=== PATIENT | male | born 1980 | race Caucasian/White ===

== ENCOUNTER 2017-02-26 17:45 | Inpatient (IN) | payer SELFPAY ==
[~2017-02-26] VITALS: Ht 175.3 cm; Wt 58.4 kg
[2017-02-26 17:56] VITALS: BP 144/89; PULSE 53; RESP 16; TEMP 97.9; O2SAT 97
[2017-02-26 18:26] VITALS: BP 139/84; PULSE 55; PULSE 60; RESP 15; TEMP 98.2; O2SAT 100; O2SAT 98
[2017-02-26] MEDS ORDERED: METH40TA PO (18:37)
[2017-02-26] MEDS ORDERED: TETANUS/DIPHTHERIA TOXOID ADULT 0.5 ML VIAL IM ONE (19:00)
[2017-02-26] MEDS ORDERED: LIDOCAINE HCL 1% PF 30 ML VIAL INFIL ONE (19:00)
[2017-02-26] MEDS ORDERED: BUPIVACAINE HCL PF 0.5% 10 ML VIAL INFIL ONE (19:00)
--- NOTE | 2017-02-26 19:12 | PD ---
HPI Chief Complaint: Laceration/Skin Injury Time Seen by Provider: 19:00 Travel History International Travel<30 days: No Contact w/Intl Traveler<30days: No Traveled to known affect area: No History of Present Illness HPI 36-year-old [id number] male presents for evaluation of laceration to the right third finger. It was Sustained prior to arrival on a table saw. He has generalized pain associated with laceration. Limited range of motion. Denies any numbness or tingling. Last tetanus vaccination unknown. No other complaints. [facility] Past Medical History Medical History: Denies Significant Hx Diminished Hearing: No Tetanus Vaccination: Unknown Influenza Vaccination: No Social History Alcohol Use: Yes (rare) Tobacco Use: Yes Substance Use: No Allergies-Medications (Allergen,Severity, Reaction): Coded Allergies: Buprenorphine (Verified Allergy, Severe, 02/26/17) lost hearing, hot/cold/seizures Toradol (Verified Allergy, Unknown, 02/26/17) Reported Meds & Prescriptions Reported Meds & Active Scripts Active Reported Methadone (Methadone HCl) 40 Mg Tab 40 Mg PO DAILY Review of Systems Except as stated in HPI: all other systems reviewed are Neg Physical Exam Narrative GENERAL: Well-developed well-nourished male in no acute distress SKIN: Warm and dry. Examination of the right third finger reveals a 8cm deep flap laceration to the dorsal aspect of the distal right third finger which seems to have obliterated the extensor tendon, obvious bony involvement. HEAD: Atraumatic. Normocephalic. EYES: Pupils equal and round. No scleral icterus. No injection or drainage. ENT: No nasal bleeding or discharge. Mucous membranes pink and moist. NECK: Trachea midline. No JVD. CARDIOVASCULAR: Regular rate and rhythm. No murmur appreciated. RESPIRATORY: No accessory muscle use. Clear to auscultation. Breath sounds equal bilaterally. GASTROINTESTINAL: Abdomen soft, non-tender, nondistended. Hepatic and splenic margins not palpable. MUSCULOSKELETAL: Skin as noted above. The right third finger DIP joint is passively held in flexion secondary to extensor tendon injury. Unable to actively fully extend. Capillary refill less than 2 seconds. Distal sensation seems to be preserved on the radial and ulnar aspect of the right third finger. NEUROLOGICAL: Awake and alert. No obvious cranial nerve deficits. Motor grossly within normal limits. Normal speech. Data Data Last Documented VS Vital Signs Date Time Temp Pulse Resp B/P Pulse Ox O2 Delivery O2 Flow Rate FiO2 02/26/17 19:40 68 15 124/68 98 Room Air 02/26/17 18:26 98.2 Orders Bupivacaine Pf 0.5% Inj (Marcaine Pf 0.5 (02/26/17 19:00) Lidocaine Pf 1% Inj (Xylocaine-Mpf 1% In (02/26/17 19:00) Finger ([id number]) (02/26/17 18:55) Tetanus/Diphtheria Tox Adult (Tetanus/Di (02/26/17 19:00) Cefazolin 2 Gm Premix (Ancef 2 Gm Premix (02/26/17 19:15) Complete Blood Count With Diff (02/26/17 19:51) Basic Metabolic Panel (Bmp) (02/26/17 19:51) Act Partial Throm Time (Ptt) (02/26/17 19:51) Prothrombin Time / Inr (Pt) (02/26/17 19:51) NPO (02/26/17 19:51) Admit Order (Ed Use Only) (02/26/17 20:58) Consult Hand Surgery (02/26/17 ) Cefazolin Inj (Ancef Inj) (02/27/17 00:00) Gentamicin Inj (Gentamicin Inj) (02/26/17 21:15) Gentamicin Consult Pharmacy (Gentamicin (02/26/17 21:15) Consent (02/26/17 21:07) ^ Elevate (02/26/17 21:07) Dext 5%-Nacl 0.45% 1000 Ml Inj (D5w-1/2 (02/27/17 01:00) Hydromorphone Pf Inj (Dilaudid Pf Inj) (02/26/17 21:15) Potassium Chloride (Kcl) (02/26/17 21:15) Admit To Inpatient (02/26/17 ) Vital Signs (Adult) Q4H (02/26/17 21:14) Activity Oob Ad Libertad (02/26/17 21:14) Diet Npo (02/27/17 Breakfast) Sodium Chlor 0.9% 1000 Ml Inj (Ns 1000 M (02/26/17 21:14) Sodium Chloride 0.9% Flush (Ns Flush) (02/26/17 21:15) Sodium Chloride 0.9% Flush (Ns Flush) (02/27/17 09:00) Ondansetron Inj (Zofran Inj) (02/26/17 21:15) Bisacodyl Supp (Dulcolax Supp) (02/26/17 21:15) Comprehensive Metabolic Panel (02/27/17 06:00) Complete Blood Count With Diff (02/27/17 06:00) Scd Bilateral/Knee High QUYNH.BID (02/26/17 21:14) Syed Bilateral/Knee High QUYNH.QSHIFT (02/26/17 21:14) Acetaminophen (Tylenol) (02/26/17 21:15) Morphine Inj (Morphine Inj) (02/26/17 21:15) Oxycodone (Roxicodone) (02/26/17 21:15) Inpatient Certification (02/26/17 ) Methadone (Dolophine) (02/27/17 09:00) (Hub Use Only)Inp Phy Cons/Ref (02/26/17 ) Splint Or Brace Apply/Monitor (02/26/17 21:26) Labs Laboratory Tests Test 02/26/17 19:50 White Blood Count 12.5 TH/MM3 Red Blood Count 4.21 MIL/MM3 Hemoglobin 13.2 GM/DL Hematocrit 38.2 % Mean Corpuscular Volume 90.8 FL Mean Corpuscular Hemoglobin 31.3 PG Mean Corpuscular Hemoglobin 34.4 % Concent Red Cell Distribution Width 13.8 % Platelet Count 275 TH/MM3 Mean Platelet Volume 8.4 FL Neutrophils (%) (Auto) 70.1 % Lymphocytes (%) (Auto) 21.8 % Monocytes (%) (Auto) 7.0 % Eosinophils (%) (Auto) 0.8 % Basophils (%) (Auto) 0.3 % Neutrophils # (Auto) 8.8 TH/MM3 Lymphocytes # (Auto) 2.7 TH/MM3 Monocytes # (Auto) 0.9 TH/MM3 Eosinophils # (Auto) 0.1 TH/MM3 Basophils # (Auto) 0.0 TH/MM3 CBC Comment DIFF FINAL Differential Comment Prothrombin Time 10.7 SEC Prothromb Time International 1.0 RATIO Ratio Activated Partial 26.6 SEC Thromboplast Time Sodium Level 139 MEQ/L Potassium Level 3.2 MEQ/L Chloride Level 100 MEQ/L Carbon Dioxide Level 28.5 MEQ/L Anion Gap 11 MEQ/L Blood Urea Nitrogen 8 MG/DL Creatinine 0.94 MG/DL Estimat Glomerular Filtration 92 ML/MIN Rate Random Glucose 78 MG/DL Calcium Level 9.1 MG/DL MDM Medical Decision Making Medical Screen Exam Complete: Yes Emergency Medical Condition: Yes Medical Record Reviewed: Yes Differential Diagnosis Open fracture, extensor tendon laceration, cutaneous laceration Narrative Course 36 old male with 8 cm complicated laceration of the dorsal aspect of right third finger, obvious open fracture with extensor tendon injury. A digital block was performed. The wound will be thoroughly irrigated. IV Ancef has been administered. X-ray has been ordered. Tetanus status updated. X-ray confirms a middle phalanx open fracture with extensor tendon involvement. The wound has been thoroughly irrigated. The on-call hand surgeon will be consult. Discussed with Dr. Milligan hand surgeon who come and evaluate the patient. npo. Basic lab work has been ordered. Dr. Castillo plans on taking this patient to the operating room in the morning once the OR has availability. He has asked that the wound be loosely sutured and that the finger be placed in a splint with extension. The patient verbally consents. The patient was admitted to the medicine team with hand surgery consultation. NPO after midnight. Procedures Procedure Narrative LACERATION LOCATION: Right third finger LENGTH: 8 cm NUMBER OF STITCHES/NEIL: 11 REPAIR: The area of the laceration was prepped with Betadine and sterilely draped. The laceration was infiltrated with 1% lidocaine, 0.5% Marcaine digital block. The wound was copiously irrigated and explored. The wound was closed using 5-0 prolene simple interrupted. This was a single layer repair. A sterile dressing was applied. The patient was advised to keep the dressing clean and dry. Patient tolerated the procedure well. Diagnosis Primary Impression: Open finger fracture Qualified Code: S62.622B - Open displaced fracture of middle phalanx of right middle finger, initial encounter Additional Impression: Extensor tendon laceration, finger, open wound Qualified Code: S66.529A - Extensor tendon laceration, finger, open wound, initial encounter Admitting Information Admitting Physician Requests: Observation Long Saldivar February 26, 2017 19:12
[2017-02-26] MEDS ORDERED: ceFAZolin 2 GM PREMIX 50 ML IV ONE (19:15)
--- NOTE | 2017-02-26 19:32 | RADRPT ---
EXAM DATE/TIME: 02/26/2017 19:12 [place] COMPARISON: No previous studies available for comparison. INDICATIONS : Laceration 3rd distal digit, finger vs. power saw MEDICAL HISTORY : None. SURGICAL HISTORY : None. ENCOUNTER: Initial ACUITY: 1 day PAIN SCORE: 9/10 LOCATION: Right 3rd digit FINDINGS: Large soft tissue defect seen dorsally of the midportion of the long finger. There is a large bony de fect of the middle phalanx and an associated oblique fracture with palmar angulation of the proximal shaft region. Articular surfaces are intact. No subluxations. Mild flexion deformity seen at the distal interphalangeal joint. The mid to distal extensor tendon is probably severed. CONCLUSION: Fractured middle phalanx of the long finger as above. Large saw defect of the dorsal soft tissues and the middle phalanx. Probably severed extensor tendon. Wallace Figueroa MD on February 26, 2017 at 19:28 Board Certified Radiologist. This report was verified electronically.
[2017-02-26 19:40] VITALS: BP 124/68; PULSE 68; RESP 15; O2SAT 98
[2017-02-26 20:16] LABS: AUTOMATED NEUTROPHIL # 8.8 TH/MM3 (1.8-7.7); BASOPHIL % 0.3 % (0.0-2.0); EOSINOPHIL # 0.1 TH/MM3 (0-0.4); EOSINOPHIL % 0.8 % (0.0-4.0); HEMATOCRIT 38.2 % (39.0-51.0); HEMO FLAGS DIFF FINAL; LYMPH % 21.8 % (9.0-44.0); LYMPHOCYTE # 2.7 TH/MM3 (1.0-4.8); MEAN CELL VOLUME 90.8 FL (80.0-100.0); MEAN CORPUSCULAR HEMOGLOBIN 31.3 PG (27.0-34.0); MEAN CORPUSCULAR HGB CONC 34.4 % (32.0-36.0); NEUT % 70.1 % (16.0-70.0); PLATELET COUNT 275 TH/MM3 (150-450); RED BLOOD COUNT 4.21 MIL/MM3 (4.50-5.90); RED CELL DISTRIBUTION WIDTH 13.8 % (11.6-17.2); WHITE BLOOD COUNT 12.5 TH/MM3 (4.0-11.0)
[2017-02-26 20:50] LABS: APTT (PATIENT) 26.6 SEC (24.3-30.1); PROTHROMBIN TIME - PATIENT 10.7 SEC (9.8-11.6)
[2017-02-26 20:51] LABS: BICARBONATE 28.5 MEQ/L (21.0-32.0); POTASSIUM 3.2 MEQ/L (3.5-5.1)
[2017-02-26] MEDS ORDERED: BISACODYL 10 MG SUPP RECTAL PRN (21:15)
[2017-02-26] MEDS ORDERED: ONDANSETRON HCL 4 MG/2 ML VIAL IVP PRN (21:15)
[2017-02-26] MEDS ORDERED: SODIUM CHLORIDE 0.9% FLUSH 10 ML FLUSH IV FLUSH PRN (21:15)
[2017-02-26] MEDS ORDERED: Gentamicin Consult Pharmacy 1 EA OTHER SCH (21:15)
[2017-02-26] MEDS ORDERED: POTASSIUM CHLORIDE 20 MEQ CONTROLLED RELEASE TAB PO ONE (21:15)
[2017-02-26] MEDS ORDERED: HYDROmorphone HCL PF 1 MG/ML VIAL IV PUSH PRN (21:15)
[2017-02-26] MEDS ORDERED: ACETAMINOPHEN 325 MG TAB PO PRN (21:15)
--- NOTE | 2017-02-26 21:18 | HHI.HP ---
[facility] Service [place] Primary Care Physician No Primary Care Physician Admission Diagnosis Open finger fraqcture with extensor tendon involvement Diagnoses: (1) Open finger fracture Diagnosis: Principal (2) Extensor tendon laceration, finger, open wound Diagnosis: Principal (3) Leukocytosis Diagnosis: Principal (4) Hypokalemia Diagnosis: Principal (5) Chronic pain Diagnosis: Principal (6) Opioid dependence Diagnosis: Principal (7) Tobacco abuse Diagnosis: Principal Travel History International Travel<30 Days: No Contact w/Intl Traveler <30 Da: No Traveled to Known Affected Are: No History of Present Illness This is a 36-year-old male with a PMH of Chronic Pain and Opioid Dependence who presented to the ER w/ right finger laceration while using table saw. No other injuries reported. On arrival, BP 144/89, HR 53, O2 sat 97% on RA, Afebrile. WBC 12.5. Chemistry essentially unremarkable except for K+ 3.2. INR 1.0. Finger X-ray w/ fracture middle phalanx of the long finger, large side defects on dorsal soft tissues and middle phalanx, probably severed extensor tendon. Dr. Milligan consulted by ER physician, plan is for surgical intervention. Review of Systems Except as stated in HPI: all other systems reviewed are Neg ROS: 14 point review of systems otherwise negative. Past Family Social History Past Medical History PMH: Chronic Pain and Opioid Dependence Past Surgical History PAST SURGICAL HISTORY: None Allergies: Coded Allergies: Buprenorphine (Verified Allergy, Severe, 02/26/17) lost hearing, hot/cold/seizures Toradol (Verified Allergy, Unknown, 02/26/17) Family History PAST FAMILY HISTORY: Reviewed. No h/o DM or CAD Social History PAST SOCIAL HISTORY: Occasional alcohol. Positive for tobacco abuse. Negative for drugs. Physical Exam Vital Signs Vital Signs Date Time Temp Pulse Resp B/P Pulse Ox O2 Delivery O2 Flow Rate FiO2 02/26/17 19:40 68 15 124/68 98 Room Air 02/26/17 18:26 60 15 139/84 98 Room Air 02/26/17 18:26 60 18 02/26/17 18:26 98.2 55 15 139/84 100 02/26/17 17:56 97.9 53 16 144/89 97 Physical Exam PE: GENERAL: Pleasant middle-aged male in no acute distress. HEENT: PERRLA, EOMI. No scleral icterus or conjunctival pallor. No lid lag or facial droop. CARDIOVASCULAR: Regular rate and rhythm. No obvious murmurs to auscultation. No chest tenderness to palpation. RESPIRATORY: No obvious rhonchi or wheezing. Clear to auscultation. Breath sounds equal bilaterally. GASTROINTESTINAL: Abdomen soft, non-tender, nondistended. BS normal. MUSCULOSKELETAL: Extremities without clubbing, cyanosis, or edema. No obvious deformities. Right 3rd finger injury, s/p laceration repair. NEUROLOGICAL: Awake, alert and oriented x4. No focal neurologic deficits. Moving both upper and lower extremities spontaneously. Laboratory Laboratory Tests Test 02/26/17 19:50 White Blood Count 12.5 Red Blood Count 4.21 Hemoglobin 13.2 Hematocrit 38.2 Mean Corpuscular Volume 90.8 Mean Corpuscular Hemoglobin 31.3 Mean Corpuscular Hemoglobin 34.4 Concent Red Cell Distribution Width 13.8 Platelet Count 275 Mean Platelet Volume 8.4 Neutrophils (%) (Auto) 70.1 Lymphocytes (%) (Auto) 21.8 Monocytes (%) (Auto) 7.0 Eosinophils (%) (Auto) 0.8 Basophils (%) (Auto) 0.3 Neutrophils # (Auto) 8.8 Lymphocytes # (Auto) 2.7 Monocytes # (Auto) 0.9 Eosinophils # (Auto) 0.1 Basophils # (Auto) 0.0 CBC Comment DIFF FINAL Differential Comment Prothrombin Time 10.7 Prothromb Time International 1.0 Ratio Activated Partial 26.6 Thromboplast Time Sodium Level 139 Potassium Level 3.2 Chloride Level 100 Carbon Dioxide Level 28.5 Anion Gap 11 Blood Urea Nitrogen 8 Creatinine 0.94 Estimat Glomerular Filtration 92 Rate Random Glucose 78 Calcium Level 9.1 Result Diagram: 02/26/17 1950 02/26/171949 Assessment and Plan Problem List: (1) Open finger fracture ICD Code: S62.609B Status: Acute (2) Extensor tendon laceration, finger, open wound ICD Code: S66.529A Status: Acute (3) Leukocytosis ICD Code: D72.829 Status: Acute (4) Chronic pain ICD Code: G89.29 Status: Acute (5) Opioid dependence ICD Code: F11.20 Status: Acute (6) Hypokalemia ICD Code: E87.6 Status: Acute (7) Tobacco abuse ICD Code: Z72.0 Status: Acute Assessment and Plan A/P: 1. Open Finger Fx: s/p injury w/ table saw, Right 3rd finger open fracture w/ likely extensor tendon laceration. X-ray w/ fracture middle phalanx of the long finger, large solid defect of the dorsal soft tissues and middle phalanx, probably severed extensor tendon, by me. Dr. Milligan consulted by ER physician, plan is for surgical intervention. NPO, IVF, analgesics/antiemetics as needed. 2. Chronic Pain: w/ Opioid Dependence, currently on Methadone 40mg qd, will resume home medications. 3. Leukocytosis: WBC 12.5, likely stress response secondary to fracture, will repeat labs in am. No signs of infection at this time. 4. Hypokalemia: K+ 3.2, will replace and recheck. 5. Tobacco Abuse: Pt counselled. NicoDerm prn if needed. 6. DVT Prophylaxis: SCD/Teds. 7. Social work for d/c planning as needed. 8. Case discussed w/ ER physician at length. Physician Certification 2 Midnight Certification Type: Admission for Inpatient Services Order for Inpatient Services The services are ordered in accordance with Medicare regulations or non- Medicare payer requirements, as applicable. In the case of services not specified as inpatient-only, they are appropriately provided as inpatient services in accordance with the 2-midnight benchmark. Estimated LOS (days): 2 days is the estimated time the patient will need to remain in the hospital, assuming treatment plan goals are met and no additional complications. Post-Hospital Plan: Not yet determined Problem Qualifiers (1) Open finger fracture: Qualified Code: S62.622B - Open displaced fracture of middle phalanx of right middle finger, initial encounter (2) Extensor tendon laceration, finger, open wound: Qualified Code: S66.529A - Extensor tendon laceration, finger, open wound, initial encounter Camilla Higginbotham MD February 26, 2017 21:18
[2017-02-26] MEDS ORDERED: GENTAMICIN INJ 120 MG in SODIUM CHLORIDE 0.9% INJ 100 ML IV ONE (22:00)
[2017-02-26 22:30] VITALS: BP 125/72; PULSE 82; RESP 16; TEMP 98.1; O2SAT 99
[2017-02-26] MEDS ORDERED: LACTATED RINGER'S 1000 ML IV PRN (22:45)
[2017-02-26] MEDS ORDERED: INSULIN HUMAN REGULAR 1,000 UNITS/10 ML VIAL SQ PRN (22:45)
[2017-02-26] MEDS ORDERED: CHLORHEXIDINE GLUCONATE 2 % 1 PACK (2 CLOTHS) TOPICAL PRN (22:45)
[2017-02-26] MEDS ORDERED: POVIDONE IODINE 5% (ANTISEPSIS KIT) 4 APPLICATIONS EACH NARE PRN (22:45)
[2017-02-26] MEDS ORDERED: SODIUM CHLORID 0.9% 500 ML IV PRN (22:45)
[2017-02-26] MEDS ORDERED: METOPROLOL TARTRATE 25 MG TAB PO PRN (22:45)
--- NOTE | 2017-02-26 23:02 | MB ---
cc: NITESH AMEZCUA MD DATE OF CONSULTATION 02/26/17 HISTORY OF PRESENT ILLNESS The patient is a 36-year-old iiqjo-ycay-dfhqserb white male who several hours ago was using a table saw and went across his right third finger predominantly dorsally. he was woodworking at home when this happened. PAST MEDICAL HISTORY Chronic pain. PAST SURGICAL HISTORY Denied. MEDICATIONS Methadone 45 mg daily. ALLERGIES SUBOXONE TORADOL TRAMADOL SOCIAL HISTORY She does smoke cigarettes occasionally. FAMILY HISTORY Noncontributory and not pertinent to this injury. REVIEW OF SYSTEMS Does not complain of any headaches or blurry or double vision. Does not complain of any coughing, wheezing or shortness of breath. Not complaining of any nausea, vomiting, abdominal pain. Not complaining of any burning, frequency or urgency with urination. Not complaining of any spine, neck or back pain. He is not complaining of any anxiety, depression or suicidal ideations. He is not complaining of any night sweats, fevers or chills. He is not complaining of any lesions, rashes or eruptions on his skin. IMAGING STUDIES X-ray examination of the right middle fingers performed reviewed in the emergency room today which reveals fracture middle phalanx of the long finger, a large saw defect of the dorsal soft tissues and the middle phalanx, probably severed extensor tendons. PHYSICAL EXAMINATION GENERAL: He is well-developed, well-nourished in no apparent distress. VITAL SIGNS: Temperature is 98.2, heart rate 68, respiratory rate 15, blood pressure 124/68, pulse ox 98% on room air. Examination of the right upper extremity - he had his tests on his forearm. It is not infected. His upper extremity from the elbow down major joints move normally. There is the obvious injury to the middle finger which has a large he maceration dorsally that extends radially from the level of the PIP joint distally. There is exposed extensor tendon and a large dorsal flap of skin with extensor tendon attached to it. Capillary refill on the tip of the finger is two seconds and the nail bed likewise. The patient has a digital block in place and I am not able to assess sensation. Flexor tendons appear to be intact. There is no active bleeding. There are no other obvious injuries. IMPRESSION Table saw injury right middle finger with open middle phalangeal fracture and extensor tendon injury. PLAN Go to the operating room, however, the operating room does not have capacity to accommodate us tonight. They are booked until early childhood education worker. Therefore, the patient has been washed out once in emergency room and he is going to washed out again more thoroughly by the physician's mortgage assistant and the skin edges loosely reapproximated and he will be splinted. He will be admitted, placed on IV antibiotics and we will go to the operating room in the morning. I discussed this with the patient. He understands the risk of infection and the risk of possibly losing the finger and he understands and requests that we proceed. He also understands the risks include but are not limited to heart attack, stroke, , bleeding, risk of injury, blood vessels, tendons, nerves and bones and requests that we proceed. MD KATHY Yang III/ /9:20 PM /10:47 PM
[2017-02-27] MEDS: MORPHINE SULFATE 4 MG/ML INJ IV PRN ×5 (00:14→21:04)
[2017-02-27] MEDS ORDERED: DEXT 5%-NACL 0.45% 1000 ML INJ 1,000 ML IV SCH (01:00)
[2017-02-27 04:00] VITALS: BP 116/79; PULSE 54; RESP 17; TEMP 98; O2SAT 98
[2017-02-27 05:27] LABS: AUTOMATED NEUTROPHIL # 8.4 TH/MM3 (1.8-7.7); BASOPHIL % 0.3 % (0.0-2.0); EOSINOPHIL # 0.3 TH/MM3 (0-0.4); EOSINOPHIL % 1.9 % (0.0-4.0); HEMATOCRIT 38.2 % (39.0-51.0); HEMO FLAGS DIFF FINAL; LYMPH % 28.6 % (9.0-44.0); LYMPHOCYTE # 3.9 TH/MM3 (1.0-4.8); MEAN CELL VOLUME 91.1 FL (80.0-100.0); MEAN CORPUSCULAR HEMOGLOBIN 31.2 PG (27.0-34.0); MEAN CORPUSCULAR HGB CONC 34.2 % (32.0-36.0); MONO % 7.7 % (0.0-8.0); NEUT % 61.5 % (16.0-70.0); PLATELET COUNT 251 TH/MM3 (150-450); RED BLOOD COUNT 4.19 MIL/MM3 (4.50-5.90); RED CELL DISTRIBUTION WIDTH 13.5 % (11.6-17.2); WHITE BLOOD COUNT 13.6 TH/MM3 (4.0-11.0)
[2017-02-27 05:45] LABS: ANION GAP 11 MEQ/L (5-15); AST (GOT) 16 U/L (15-37); BICARBONATE 27.9 MEQ/L (21.0-32.0); BLOOD UREA NITROGEN 11 MG/DL (7-18); CHLORIDE 102 MEQ/L (98-107); GLOMERULAR FILTRATION RATE 90 ML/MIN (>89); POTASSIUM 3.4 MEQ/L (3.5-5.1); SODIUM (NA) 141 MEQ/L (136-145)
[2017-02-27 05:48] LABS: ALKALINE PHOSPHATASE 78 U/L (45-117); ALT (GPT) 29 U/L (12-78); TOTAL BILIRUBIN ADULT 0.2 MG/DL (0.2-1.0)
[2017-02-27] MEDS ORDERED: GENTAMICIN INJ 120 MG in SODIUM CHLORIDE 0.9% INJ 100 ML IV ONE (06:00)
[2017-02-27] MEDS: SODIUM CHLOR 0.9% 1000 ML INJ 1,000 ML IV SCH ×2 (07:14→17:14)
[2017-02-27] MEDS: SODIUM CHLORIDE 0.9% FLUSH 10 ML FLUSH IV FLUSH SCH ×2 (07:49→21:05)
[2017-02-27] MEDS: METHADONE HCL 10 MG TAB PO SCH (08:49)
--- NOTE | 2017-02-27 10:00 | HHI.PR ---
Subjective Remarks Follow-up open finger fracture, chronic pain, leukocytosis, hypokalemia. Patient going for surgery this morning. Pain is adequately controlled at this time. Denies chest pain, dyspnea, nausea, vomiting. Objective Vitals Vital Signs Date Time Temp Pulse Resp B/P Pulse Ox O2 Delivery O2 Flow Rate FiO2 02/27/17 04:00 98.0 54 17 116/79 98 02/26/17 22:30 98.1 82 16 125/72 99 02/26/17 19:40 68 15 124/68 98 Room Air 02/26/17 18:26 60 15 139/84 98 Room Air 02/26/17 18:26 60 18 02/26/17 18:26 98.2 55 15 139/84 100 02/26/17 17:56 97.9 53 16 144/89 97 I/O 02/26/17 02/26/17 02/26/17 02/27/17 02/27/17 02/27/17 07:00 15:00 23:00 07:00 15:00 23:00 Intake Total 0 ml Balance 0 ml Intake Oral 0 ml # Voids 2 # Bowel Movements 0 Result Diagram: 02/27/17 0333 02/27/17 0333 Imaging Last Impressions Finger X-Ray 02/26/17 7615 Signed Impressions: Service Date/Time: Sunday, February 26, 2017 19:12 - CONCLUSION: Fractured middle phalanx of the long finger as above. Large saw defect of the dorsal soft tissues and the middle phalanx. Probably severed extensor tendon. Wallace Figueroa MD Objective Remarks General: No acute distress. Heart: Regular rate and rhythm. No murmur. Lungs: Clear to auscultation bilaterally. No wheezes, rales, or rhonchi. Breathing is nonlabored. Abdomen: Soft, nontender, nondistended. Extremities: No lower extremity edema. Right hand bandaged. Psych: Alert and oriented. Urinary Catheter: No Vascular Central Line Catheter: No A/P Problem List: (1) Open finger fracture ICD Code: S62.609B Status: Acute (2) Extensor tendon laceration, finger, open wound ICD Code: S66.529A Status: Acute (3) Leukocytosis ICD Code: D72.829 Status: Acute (4) Chronic pain ICD Code: G89.29 Status: Chronic (5) Opioid dependence ICD Code: F11.20 Status: Chronic (6) Hypokalemia ICD Code: E87.6 Status: Acute (7) Tobacco abuse ICD Code: Z72.0 Status: Chronic Assessment and Plan 1. Open finger fracture: Patient cut his right third finger with a table saw. There is an open fracture with likely extensor tendon laceration. Going for surgery with Dr. Milligan this morning. Keep nothing by mouth. Continue pain control. 2. Chronic pain, opioid dependence: Patient is on methadone reportedly 45 mg every other day. He goes to the [facility] methadone clinic. Will try to confirm dosing. 3. Leukocytosis: Likely stress reaction. Monitor labs. 4. Hypokalemia: Supplement potassium. Monitor labs. 5. Tobacco abuse: Counseled quit smoking. 6. DVT prophylaxis: THALIA Ram. Avoid chemical prophylaxis in anticipation of surgery. Problem Qualifiers (1) Open finger fracture: Qualified Code: S62.622B - Open displaced fracture of middle phalanx of right middle finger, initial encounter (2) Extensor tendon laceration, finger, open wound: Qualified Code: S66.529A - Extensor tendon laceration, finger, open wound, initial encounter Abelardo Maloen MD February 27, 2017 10:00
[2017-02-27] MEDS ORDERED: LIDOCAINE HCL 2% 50 ML VIAL ONE (10:30)
[2017-02-27] MEDS ORDERED: BUPIVACAINE HCL PF 0.5% 30 ML VIAL ONE (10:30)
--- NOTE | 2017-02-27 11:31 | HHI.PR ---
Immediate Post Op Note Procedure Date: February 27, 2017 Pre Op Diagnosis: (1) Extensor tendon laceration, finger, open wound (2) Open finger fracture Post Op Diagnosis: Surgeon: Martín Milligan III Solution Professional(s): Procedure: debridement of open fracture right 3rd middle phalanx open reduction and pinning right 3rd middle phalanx repair right 3rd extensor mechanism complex wound closure right middle finger use of image intensifier Complications: none Specimen(s) removed: none Estimated blood loss: 1cc Anesthesia: General, Local Drains: None IVF Patient to: PACU Patient Condition: Good Martín Milligan III, MD February 27, 2017 11:31
[2017-02-27] MEDS ORDERED: NEOMYCIN/POLYMYXIN 1 ML G.U. IRRIGANT TOPICAL ONE (11:40)
[2017-02-27] MEDS ORDERED: CEPH-460 PO (12:46)
[2017-02-27] MEDS ORDERED: IBUP800T23 PO (12:46)
[2017-02-27] MEDS ORDERED: NORC5TAB PO (12:46)
[2017-02-27] MEDS ORDERED: fentaNYL CITRATE 250 MCG/5 ML AMP ONE (12:59)
[2017-02-27] MEDS ORDERED: DO NOT ADM ANY ANTICOAGULANT DRUGS PRN (13:30)
[2017-02-27] MEDS ORDERED: NEOSTIGMINE 3 MG/3 ML SYR IV ONE (13:47)
[2017-02-27] MEDS ORDERED: PROPOFOL 200 MG/20 ML AMP IV ONE (13:47)
[2017-02-27] MEDS ORDERED: LACTATED RINGER'S 1000 ML INJ 1,000 ML IV ONE (13:47)
[2017-02-27] MEDS: GENTAMICIN INJ 110 MG in SODIUM CHLORIDE 0.9% INJ 100 ML IV SCH ×2 (14:54→21:47)
[2017-02-27 18:11] VITALS: BP 100/70; PULSE 77; RESP 18; TEMP 98.3; O2SAT 99
[2017-02-27 20:00] VITALS: BP 107/56; PULSE 70; RESP 17; TEMP 98.9; O2SAT 96
[2017-02-27] MEDS ORDERED: PHARMACY ORDERED LAB ONE ×2 (21:45→23:00)
[2017-02-28] VITALS: BP 104/60; PULSE 53; RESP 16; TEMP 96.1; O2SAT 97
[2017-02-28] MEDS: MORPHINE SULFATE 4 MG/ML INJ IV PRN ×3 (02:27→15:13)
[2017-02-28] MEDS: SODIUM CHLOR 0.9% 1000 ML INJ 1,000 ML IV SCH ×2 (03:14→13:44)
[2017-02-28 04:00] VITALS: BP 97/54; PULSE 57; RESP 17; TEMP 97.6; O2SAT 96
[2017-02-28 05:52] LABS: AUTOMATED NEUTROPHIL # 15.5 TH/MM3 (1.8-7.7); BASOPHIL % 0.2 % (0.0-2.0); EOSINOPHIL % 0.1 % (0.0-4.0); HEMATOCRIT 36.8 % (39.0-51.0); HEMO FLAGS DIFF FINAL; LYMPH % 10.7 % (9.0-44.0); MEAN CELL VOLUME 91.3 FL (80.0-100.0); PLATELET COUNT 234 TH/MM3 (150-450); RED BLOOD COUNT 4.02 MIL/MM3 (4.50-5.90)
[2017-02-28 05:55] LABS: BICARBONATE 27.8 MEQ/L (21.0-32.0); POTASSIUM 4.1 MEQ/L (3.5-5.1)
[2017-02-28] MEDS: GENTAMICIN INJ 110 MG in SODIUM CHLORIDE 0.9% INJ 100 ML IV SCH ×2 (06:29→13:43)
[2017-02-28 08:00] VITALS: BP 102/70; PULSE 52; RESP 16; TEMP 96.7; O2SAT 98
[2017-02-28] MEDS: METHADONE HCL 10 MG TAB PO SCH (08:19)
[2017-02-28] MEDS: SODIUM CHLORIDE 0.9% FLUSH 10 ML FLUSH IV FLUSH SCH (08:20)
[2017-02-28 12:00] VITALS: BP 110/72; PULSE 92; RESP 16; TEMP 97.8; O2SAT 100
--- NOTE | 2017-02-28 14:21 | HHI.PR ---
Subjective Remarks Follow-up open finger fracture, chronic pain, leukocytosis, hypokalemia. The patient is reporting pain in the right hand, not relieved by current oxycodone dose. He states that he has significant back pain and has been on chronic opiates. He does go to the methadone clinic and has been trying to wean off methadone. No other complaints at this time. No nausea, vomiting, dyspnea, chest pain. Objective Vitals Vital Signs Date Time Temp Pulse Resp B/P Pulse Ox O2 Delivery O2 Flow Rate FiO2 02/28/17 08:00 96.7 52 16 102/70 98 02/28/17 04:00 97.6 57 17 97/54 96 02/28/17 03:38 21 02/28/17 00:00 96.1 53 16 104/60 97 02/27/17 20:00 98.9 70 17 107/56 96 02/27/17 18:11 98.3 77 18 100/70 99 I/O 02/27/17 02/27/17 02/27/17 02/28/17 02/28/17 02/28/17 07:00 15:00 23:00 07:00 15:00 23:00 Intake Total 0 ml 2100 ml 360 ml 240 ml Output Total 20 ml Balance 0 ml 2080 ml 360 ml 240 ml Intake Oral 0 ml 0 ml 360 ml 240 ml IV Total 600 ml Other 1500 ml Output Estimated Blood Loss 20 ml # Voids 2 3 1 2 # Bowel Movements 0 0 0 0 Result Diagram: 02/28/17 0523 02/28/17 0523 Imaging Last Impressions Finger X-Ray 02/26/17 7945 Signed Impressions: Service Date/Time: Sunday, February 26, 2017 19:12 - CONCLUSION: Fractured middle phalanx of the long finger as above. Large saw defect of the dorsal soft tissues and the middle phalanx. Probably severed extensor tendon. Wallace Figueroa MD Objective Remarks General: No acute distress. Heart: Regular rate and rhythm. No murmur. Lungs: Clear to auscultation bilaterally. No wheezes, rales, or rhonchi. Breathing is nonlabored. Abdomen: Soft, nontender, nondistended. Extremities: No lower extremity edema. Right hand bandaged. Psych: Alert and oriented. Procedures 02/27/17 debridement of open fracture right 3rd middle phalanx, open reduction and pinning right 3rd middle phalanx, repair right 3rd extensor mechanism, complex wound closure right middle finger, use of image intensifier Urinary Catheter: No Vascular Central Line Catheter: No A/P Problem List: (1) Open finger fracture ICD Code: S62.609B Status: Acute (2) Extensor tendon laceration, finger, open wound ICD Code: S66.529A Status: Acute (3) Leukocytosis ICD Code: D72.829 Status: Acute (4) Chronic pain ICD Code: G89.29 Status: Chronic (5) Opioid dependence ICD Code: F11.20 Status: Chronic (6) Hypokalemia ICD Code: E87.6 Status: Acute (7) Tobacco abuse ICD Code: Z72.0 Status: Chronic Assessment and Plan 1. Open finger fracture: Patient cut his right third finger with a table saw. There is an open fracture with likely extensor tendon laceration. There is postsurgical repair by Dr. Milligan. Continue pain control. Cleared for discharge by hand surgery. 2. Chronic pain, opioid dependence: Patient is on methadone reportedly 45 mg every other day. He goes to the [facility] methadone clinic. He has been counseled regarding the use of pain medications. We'll give him a short-term prescription for Percocet. He was counseled not to take the methadone while taking the Percocet. He has not had methadone the last 2 days. 3. Leukocytosis: Likely stress reaction. No other signs of infection at this time. 4. Hypokalemia: Resolved. 5. Tobacco abuse: Counseled quit smoking. 6. DVT prophylaxis: SCDs, THALIA stover. Discharge Planning Cleared for discharge by hand surgery. Discharge home in stable condition. Follow-up with hand surgery in 10 days. Regular diet. Activity as tolerated Problem Qualifiers (1) Open finger fracture: Qualified Code: S62.622B - Open displaced fracture of middle phalanx of right middle finger, initial encounter (2) Extensor tendon laceration, finger, open wound: Qualified Code: S66.529A - Extensor tendon laceration, finger, open wound, initial encounter Abelardo Malone MD February 28, 2017 14:21
[2017-02-28] MEDS ORDERED: OXYC1TAB36 PO (14:34)
--- NOTE | 2017-02-28 14:34 | HHI.DCPOC ---
Discharge Care Plan Diagnosis: (1) Hypokalemia (2) Leukocytosis (3) Extensor tendon laceration, finger, open wound (4) Open finger fracture (5) Opioid dependence (6) Tobacco abuse (7) Chronic pain Goals to Promote Your Health * To prevent worsening of your condition and complications * To maintain your health at the optimal level Directions to Meet Your Goals Take your medications as prescribed Follow your dietary instruction Follow activity as directed Keep your appointments as scheduled Take your immunizations and boosters as scheduled If your symptoms worsen call your PCP, if no PCP go to Urgent Care Center or Emergency Room Smoking is Dangerous to Your Health. Avoid second hand smoke Call the 24-hour hour crisis hotline for domestic abuse at Abelardo Malone MD February 28, 2017 14:34
--- NOTE | 2017-02-28 22:36 | MP ---
cc: MARTÍN MILLIGAN III, M.D. DATE OF SURGERY 02/27/2017 PREOPERATIVE DIAGNOSIS Table saw injury right middle finger with open middle phalanx fracture and extensor tendon injury. PROCEDURES 1. Exploration right middle finger with debridement of open fracture of the middle phalanx and skin and subcutaneous tissue and bone. 2. Open reduction and pinning right third middle phalanx. 3. Extensor tendon repair right middle finger. 4. Complex wound closure right middle finger. 5. Use of image intensifier. SURGEON Martín Milligan III, MD PROCEDURE The patient was brought to the operating room and placed on the operating table. After the correct side and site of surgery were verified by members of each team in the room multiple times including the patient himself and after preoperative markings, preoperative written consent were verified by everyone and after adequate preoperative time-out was performed to everyone's satisfaction, after adequate general anesthesia had been achieved the right upper extremity was prepped and draped in traditional sterile surgical fashion. A 50/50 mixture of 2% plain lidocaine and 0.5% plain Marcaine was infiltrated in the subcutaneous tissue at the metacarpal level to provide a digital block of third finger, the mini C-arm and the side and site of procedure were verified, the wound was held open, devitalized skin and subcutaneous tissue were sharply debrided. The middle phalanx was then examined and there was found to be some bony loss. The joint surfaces appeared to be intact and this was thoroughly irrigated and debrided. There was no grossly contaminated tissue anywhere. Using two separate 0.035 cm K-wires in a retrograde fashion, the finger was pinned in extension and these were tailored to length, cut, bent and Jurgan balls applied. The extensor mechanism was then repaired using interrupted 4-0 Prolene sutures on the dorsal aspect of the middle finger up into the insertion into the distal phalanx. Skin edges were then precisely reapproximated using multiple interrupted and running 4-0 chromic sutures. Of note the neurovascular bundles were not exposed anywhere within the wounds. The wound did not penetrate into the flexor sheath. The hand and arm were thoroughly cleansed dried. Prior to the closure of the skin the axillary tourniquet was released after 25 total minutes at 200 mmHg. The hand and all of the fingers on the right including the middle finger became immediately soft, pink and warm and had brisk capillary refill less than 2 seconds. Xeroform was applied around the pin sites. Betadine and Adaptic dressings was applied around the finger and a bulky well-padded, well molded, whole hand immobilizing splint leaving only the thumb free, the wrist neutral and the fingers extended was made. The patient was awakened from anesthesia and transported to Post Anesthesia Care Unit awake and in stable condition at the end of the case. Sponge, needle and instrument counts were correct at the end of the case as reported by the nurses in the room. MD KATHY Yang III/RIK /1:00 PM /10:22 PM
== END 2017-02-28 15:43 | disposition home or self-care (01) | DRG 513 ==
LOC: NEPC 17:45 → NEDA 21:00 → OBSVTOIN 21:17 → N06A 22:21
PROVIDERS: ADMIT Family Medicine; ATTEND Family Medicine
PROC: 0HQFXZZ Repair Right Hand Skin, External Approach (ICD-10-PCS; 2017-02-26)
PROC: 0LQ70ZZ Repair Right Hand Tendon, Open Approach (ICD-10-PCS; 2017-02-27)
PROC: 0PST04Z Reposition Right Finger Phalanx with Internal Fixation Device, Open Approach (ICD-10-PCS; principal; 2017-02-27 10:58)
DX: S62.632B Displaced fracture of distal phalanx of right middle finger, initial encounter for open fracture (principal); F11.20 Opioid dependence, uncomplicated; S56.423A Laceration of extensor muscle, fascia and tendon of right middle finger at forearm level, initial encounter; D72.829 Elevated white blood cell count, unspecified; E87.6 Hypokalemia; F17.210 Nicotine dependence, cigarettes, uncomplicated; G89.29 Other chronic pain; M54.9 Dorsalgia, unspecified; W31.2XXA Contact with powered woodworking and forming machines, initial encounter; Y92.9 Unspecified place or not applicable; Z88.5 Allergy status to narcotic agent
CPT/HCPCS: 12004; 73140; 76000; 80048; 80053; 80170; 85025; 85610; 85730; 90471; 90714; 96365; J0690; J1580; J2270; J2710; J3010; J7030; J7120